=== PATIENT | male | born 1975 | race Caucasian/White ===

== ENCOUNTER 2024-09-14 08:01 | Day surgery (SDC) | payer SELFPAY ==
[2024-09-14] VITALS (9 sets, daily range): BP systolic 109–119; BP diastolic 72–88; PULSE 62–84; RESP 16–18; TEMP 36.3–36.5; O2SAT 96–98; BMI 25.9
--- NOTE | 2024-09-14 08:54 | PCM.PRE.AN2 ---
ASA Classification* ASA Classification ASA Classification: 1 Assessment & Plan Anesthesia* Anesthesia Assessment Anesthesia Assessment: Discussed sedation and/or anesthesia options, risks, benefits, and alternatives with patient/parents/legal guardian/POA. Questions invited. The patient/parents/legal guardian/POA seems to understand and agrees to proceed with anesthesia plan. Reviewed the physical assessment, medical history, allergy history and patient home medications list prior to surgery/procedure/anesthetic and documented any changes. Performed airway and anesthesia risk assessments. 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 When Was Last Pacemaker Check QUESTION #4 FULL TEXT: You/Your Family Experience fever (hyperthermia) with Anesthesia Last Oral Intake Last Oral intake: Last Oral Intake NPO since 05:00 09/14/24 08:19 Meds taken in AM with sips of No 09/14/24 08:19 water? Meds patient instructed to take am of surgery Any additional information?: Yes NPO since: 05:00 (Patient finished prep at 5 AM.) PONV PONV - political worker: PONV - political worker Female No 09/09/24 14:14 HX of Motion Sickness Yes 09/09/24 14:14 HX of N/V After Surgery No 09/09/24 14:14 Non-Smoker Yes 09/09/24 14:14 Duration of Surgery greater No 09/09/24 14:14 than 60 minutes Number of Risk Factors 2 09/09/24 14:14 PONV Score Moderate Risk 09/09/24 14:14 Height & Weight Height & Weight: Anesthesia: Height & Weight Height 5 ft 10 in 09/14/24 08:19 Weight: 81.919 kg 09/14/24 08:19 Body Mass Index (BMI) 25.9 09/14/24 08:19 Respiratory Assessment Respiratory Assessment - political worker: Respiratory Tract Infection Hx - political worker Hx Respiratory Tract Infection No 09/09/24 14:14 STOP Sleep Apnea STOP Sleep Apnea - political worker: STOP Sleep Apnea - political worker Hx Hypertension No 09/09/24 14:14 Hx Sleep Apnea No 09/09/24 14:14 CPAP BIPAP Do you snore loudly (louder No 09/09/24 14:14 than talking or can be heard Do you often feel tired/ No 09/09/24 14:14 fatigued/ sleepy during daytime? Has anyone observed you stop No 09/09/24 14:14 breathing during sleep? STOP Results Negative 09/09/24 14:14 QUESTION #5 FULL TEXT : Do you snore loudly (louder than talking or can be heard through closed doors)? 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 Specify any problems Hx of Preganancy in last 3 N/A 09/09/24 14:14 Months Nurse Filling Out Transfusion NBUCHER 09/09/24 14:14 & Questions: Date: 09/09/24 09/09/24 14:14 Time: 14:15 09/09/24 14:14 Patient unable to answer at this time (ie. confused, unrespo /Reproduction History /Reproductive History - political worker: /Reproductive Hx- political worker Hx Now No 09/09/24 14:14 Gestational Age (in weeks): EDC: Hx Hx Para Hx Section SAB No 09/09/24 14:14 [facility] Medical History Wears glasses Non-smoker Hx of fracture of nose Home Medications ?Medication ?Instructions ?Recorded ?Last Taken ?Type NK 08/17/24 Unknown History Allergy/AdvReac Type Severity Reaction Status Date / Time No Known Allergies Allergy Verified 09/14/24 08:17 Social History household members: spouse current occupational status: employed Smoking Status: Never smoker alcohol intake: never substance use type: does not use Review of Systems (Anesthesia) ROS Narrative System reviewed and no additional complaints, except as documented.
--- NOTE | 2024-09-14 09:39 | PCM.HP.STD ---
HPI - General General Date of Admission: 09/14/24 Date of Service: 09/14/24 Chief Complaint: Colonoscopy HPI Narrative AYDEN AVINA, is a 49 M who presents for screening colonoscopy. This is his first colonoscopy. No symptoms such as blood in the stools or black or tarry stools. No family history of colon polyps or colon cancers [facility] Medical History Wears glasses Non-smoker Hx of fracture of nose Home Medications ?Medication ?Instructions ?Recorded ?Last Taken ?Type NK 08/17/24 Unknown History Allergy/AdvReac Type Severity Reaction Status Date / Time No Known Allergies Allergy Verified 09/14/24 08:17 Social History household members: spouse current occupational status: employed Smoking Status: Never smoker alcohol intake: never substance use type: does not use ROS Constitutional Constitutional: Reports systems reviewed and no addt'l complaints, except as documented Eyes Eyes: Reports systems reviewed and no addt'l complaints, except as documented ENT HEENT: Reports systems reviewed and no addt'l complaints, except as documented Cardiovascular Cardiovascular: Reports systems reviewed and no addt'l complaints, except as documented Respiratory/Chest Respiratory/Chest: Reports systems reviewed and no addt'l complaints, except as documented Gastrointestinal Gastrointestinal: Reports systems reviewed and no addt'l complaints, except as documented Vital Signs Vital Signs Vital Signs: 09/14/24 08:18 09/14/24 08:19 09/14/24 08:59 Temperature 97.4 F L 97.4 F L Temperature Source Temporal Pulse Rate 84 84 Respiratory Rate 16 16 Respiratory Pattern Normal Blood Pressure 119/85 H 119/85 H Blood Pressure Mean 96 Blood Pressure Source Monitor Blood Pressure Position Semi-Fowlers Blood Pressure Location Left Arm Pulse Ox 98 98 Oxygen Delivery Method Room Air Room Air Weight Weight: 180 lb 9.6 oz Body Mass Index (BMI) 25.9 Physical Exam Const alert, oriented x3 and no apparent distress Assessment & Plan Assessment/Plan (1) Encounter for screening for malignant neoplasm of colon: PLAN: Plan The patient is a 49-year-old male in need of a screening colonoscopy. No previous colonoscopy. We discussed the details of the planned procedure including risk benefits and alternatives. He wishes to proceed. This began momentarily Charges/Coding Visit Charges Inpatient E&M: 84488 Init Hosp L1
--- NOTE | 2024-09-14 10:20 | OP.COLON_ITS ---
Patient Name: Fidencio Dyer Procedure Date: 09/14/2024 9:54 AM Date of : 1975 Age: 49 Procedure: Colonoscopy Indications: Screening for colorectal malignant neoplasm Providers: Sonny Baez MD Referring MD: No Primary Care Physician Medicines: Monitored Anesthesia Care Patient Profile: Refer to note in patient chart for documentation of history and physical. Last Colonoscopy: none. The patient's first colonoscopy is today. Complications: No immediate complications. Estimated blood loss: None. Procedure: Pre-Anesthesia Assessment: - Prior to the procedure, a History and Physical was performed, and patient medications and allergies were reviewed. The patient's tolerance of previous anesthesia was also reviewed. The risks and benefits of the procedure and the sedation options and risks were discussed with the patient. All questions were answered, and informed consent was obtained. Prior Anticoagulants: The patient has taken no anticoagulant or antiplatelet agents. ASA Grade Assessment: II - A patient with mild systemic disease. After reviewing the risks and benefits, the patient was deemed in satisfactory condition to undergo the procedure. After I obtained informed consent, the scope was passed under direct vision. Throughout the procedure, the patient's blood pressure, pulse, and oxygen saturations were monitored continuously. The adult colonoscope was introduced through the anus and advanced to the cecum, identified by appendiceal orifice and ileocecal valve. The ileocecal valve, appendiceal orifice, and rectum were photographed. The entire colon was well visualized. The colonoscopy was performed without difficulty. The patient tolerated the procedure well. The quality of the bowel preparation was adequate. Scope In: 10:00:48 AM Scope Withdrawal Time 0 hours 5 minutes 58 seconds Scope Out: 10:14:16 AM Total Procedure Duration Time 0 hours 13 minutes 28 seconds Findings: The perianal and digital rectal examinations were normal. The entire examined colon appeared normal on direct and retroflexion views. The exam was otherwise without abnormality on direct and retroflexion views. Impression: - The entire examined colon is normal on direct and retroflexion views. - The examination was otherwise normal on direct and retroflexion views. - No specimens collected. Recommendation: - Discharge patient to home (ambulatory). - High fiber diet. - Repeat colonoscopy in 7-10 years for screening purposes. - Return to my office PRN. - Continue present medications. Procedure Code(s): --- Professional --- 61977, Colonoscopy, flexible; diagnostic, including collection of specimen(s) by brushing or washing, when performed (separate procedure) Diagnosis Code(s): --- Professional --- Z12.11, Encounter for screening for malignant neoplasm of colon CPT copyright 2021 [employer]. All rights reserved. The codes documented in this report are preliminary and upon signal system testing maintainer review may be revised to meet current compliance requirements. Snony Baez MD 09/14/2024 10:20:00 AM This report has been signed electronically. Number of Addenda: 0 Note Initiated On: 09/14/2024 9:54 AM
--- NOTE | 2024-09-14 10:20 | OP.CCLET_ITS ---
09/14/2024 No Primary Care Physician Re : Colonoscopy procedure for Fidencio Dyer Dear Care Physician This procedure was performed on Saturday, September 14, 2024. My impressions and recommendations are as follows: Impressions : - The entire examined colon is normal on direct and retroflexion views. - The examination was otherwise normal on direct and retroflexion views. - No specimens collected. Recommendations : - Discharge patient to home (ambulatory). - High fiber diet. - Repeat colonoscopy in 7-10 years for screening purposes. - Return to my office PRN. - Continue present medications. My findings are described in the full procedure note, which is enclosed. If I can be of further assistance, please feel free to contact me at . Sincerely, Sonny Baez MD 09/14/2024 10:20:00 AM This report has been signed electronically.
--- NOTE | 2024-09-14 10:35 | PCM.POST.ANE ---
Anesthesia: Postop Eval I Current Vital Signs Temperature: 97.3 F Pulse Rate: 62 Blood Pressure: 109/72 Respiratory Rate: 16 Pulse Ox: 97 Assessment Airway patent: Yes Spontaneous unlabored respirations: Yes nausea: No Vomiting: No Anesthesia Complication: No Fluid Hydration Crystalloid volume administer (ml): 10 Total IV fluid infused: 10 Progress Note Anesthesia document: Postop Eval 1 completed: Yes
--- NOTE | 2024-09-14 10:42 | POSTOPAN2_ITS ---
Anesthesia Postop Eval I Sum Postop Eval Completion status Anesthesia document: Postop Eval 1 completed: Yes Anesthesia Postop Eval I Summary Anesthesia Postop Eval I Summary: Anesthesia Postop Eval I: Assessment Summary Airway patent Yes 09/14/24 10:42 PRINCIPLE SOFTWARE [email or web address] Spontaneous unlabored Yes 09/14/24 10:42 PRINCIPLE SOFTWARE ENGINEER.CSIR respirations Mental status nausea No 09/14/24 10:42 PRINCIPLE SOFTWARE ENGINEER.CSIR Vomiting No 09/14/24 10:42 PRINCIPLE SOFTWARE ENGINEER.CSIR Anesthesia Postop Eval I: Fluid Summary Crystalloid volume administer 10 09/14/24 10:42 PRINCIPLE SOFTWARE ENGINEER.CSIR (ml) Colloids volume administered ( ml) Blood Product volume administered (ml) Total IV fluid infused 10 09/14/24 10:42 PRINCIPLE SOFTWARE ENGINEER.CSIR Anesthesia Postop Eval I: Summary Notes Anesthesia Complication No 09/14/24 10:42 PRINCIPLE SOFTWARE ENGINEER.CSIR Anesthesia Complication Comment: Post-operative progress note Anesthesia: Postop Eval II Evaluation Mental status: Awake Pain Level: 0 nausea: No Vomiting: No
--- NOTE | 2024-09-14 10:42 | PCM.POSTANE2 ---
Anesthesia Postop Eval I Sum Postop Eval Completion status Anesthesia document: Postop Eval 1 completed: Yes Anesthesia Postop Eval I Summary Anesthesia Postop Eval I Summary: Anesthesia Postop Eval I: Assessment Summary Airway patent Yes 09/14/24 10:42 CATERING STAFF [email or web address] Spontaneous unlabored Yes 09/14/24 10:42 CATERING STAFF MEMBER.CSIR respirations Mental status nausea No 09/14/24 10:42 CATERING STAFF MEMBER.CSIR Vomiting No 09/14/24 10:42 CATERING STAFF MEMBER.CSIR Anesthesia Postop Eval I: Fluid Summary Crystalloid volume administer 10 09/14/24 10:42 CATERING STAFF MEMBER.CSIR (ml) Colloids volume administered ( ml) Blood Product volume administered (ml) Total IV fluid infused 10 09/14/24 10:42 CATERING STAFF MEMBER.CSIR Anesthesia Postop Eval I: Summary Notes Anesthesia Complication No 09/14/24 10:42 CATERING STAFF MEMBER.CSIR Anesthesia Complication Comment: Post-operative progress note Anesthesia: Postop Eval II Evaluation Mental status: Awake Pain Level: 0 nausea: No Vomiting: No
--- NOTE | 2024-09-14 10:43 | PCM.POST.ANE ---
Anesthesia: Postop Eval I Current Vital Signs Temperature: 97.7 F Pulse Rate: 70 Blood Pressure: 115/87 Respiratory Rate: 18 Pulse Ox: 96 Oxygen Delivery Method: Room Air Assessment Airway patent: Yes Spontaneous unlabored respirations: Yes Mental status: Awake and Calm nausea: No Vomiting: No Anesthesia Complication: No Fluid Hydration Crystalloid volume administer (ml): 10 Total IV fluid infused: 10 Progress Note Anesthesia document: Postop Eval 1 completed: Yes
== END 2024-09-14 11:00 | disposition home or self-care (01) ==
LOC: EN 08:01 → AC 08:07
PROVIDERS: Visit Provider Surgery
PROC: 0DJD8ZZ Inspection of Lower Intestinal Tract, Via Natural or Artificial Opening Endoscopic (ICD-10-PCS; CPT 45378; principal; 2024-09-14 08:55)
DX: Z12.11 Encounter for screening for malignant neoplasm of colon (principal)
CPT/HCPCS: 45378; A4216